=== PATIENT | female | born 1960 | race Two or more races ===

== ENCOUNTER 2019-10-12 15:11 | Emergency (ER) | payer OTHER ==
[~2019-10-12] VITALS: Ht 152.4 cm; Wt 65.8 kg
[2019-10-12 16:10] VITALS: BP 128/80
[2019-10-12] MEDS ORDERED: LISI-607 PO (16:10)
--- NOTE | 2019-10-12 16:53 | NUR ---
PRODUCTION COOK SWAB COLLECTED AND SENT TO LAB
--- NOTE | 2019-10-12 16:53 | NUR ---
PT. VERBALIZED UNDERSTANDING OF AFTERCARE INSTRUCTIONS.Patient discharged to home in stable condition. Written and verbal after care instructions given. Patient verbalizes understanding of instruction.
== END 2019-10-12 16:56 | disposition home or self-care (01) ==
LOC: ER 15:15
DX: R05 Cough (principal); Z20.828 Contact with and (suspected) exposure to other viral communicable diseases